=== PATIENT | female | born 1950 | race Caucasian/White ===

== ENCOUNTER → 2018-06-17 13:46 | Outpatient (POV) | payer BC, SELFPAY | PROVIDERS: Visit Provider Dermatology | DX: Z00.00 Encounter for general adult medical examination without abnormal findings (principal) ==

== ENCOUNTER → 2019-04-23 11:53 | Outpatient (CLI) | payer MEDICARE, SELFPAY ==
--- NOTE | 2019-04-23 11:58 | US_ITS ---
PROCEDURE: US THYROID CLINICAL INDICATION: ENLARGED THYROID Difficulty swallowing COMPARISON: No exams were available for comparison FINDINGS: Right lobe: 3.9 x 1.3 x 1.9 cm. There is homogeneous echogenicity. A small cyst is present in the lower pole at 3 mm. Left lobe: 3.3 x 1.3 x 1.3 cm. There is a 3 mm hypoechoic nodule in the upper pole medially at the isthmus junction Additional findings: IMPRESSION: Small bilateral nodules. Otherwise negative thyroid ultrasound Dictated by: Ruslan Pyle MD 04/23/2019 16:43 Electronically signed by Ruslan Pyle MD in [place] 04/23/2019 16:43
== END ==
PROVIDERS: PCP Family Medicine; Visit Provider Nurse Practitioner
DX: E04.9 Nontoxic goiter, unspecified (principal)
CPT/HCPCS: 76536

== ENCOUNTER → 2021-06-24 10:54 | Outpatient (CLI) | payer MEDICARE, SELFPAY ==
--- NOTE | 2021-06-24 10:57 | MR_ITS ---
FINAL REPORT CLINICAL HISTORY: NEW ONSET HEADACHE. Pt states 2 months ago she started having headaches w/ a pressure and pain in the top of her head. states head feels full. nki. dizziness. FINDINGS: Multiplanar MR imaging of the brain was performed without contrast. There are multiple foci of increased T2 signal in the cerebral white matter. The largest focus is in the left posterior periventricular white matter and measures up to 20 mm. There is no evidence of intracranial hemorrhage or mass. The ventricular size is normal. There is no evidence of shift of the midline structures. No abnormal extra-axial fluid collection is identified. The posterior fossa and brainstem have an unremarkable appearance. No area of abnormal restricted diffusion is identified. Normal major vessel vascular flow voids are seen. IMPRESSION: Multiple foci of increased T2 signal could represent moderate chronic ischemic/gliotic change, changes of demyelination, or vasculitis. Reviewed, Interpreted and Dictated by Brad Rodriguez III, MD Transcribed by Tion Bond Authenticated by Brad Rodriguez III, MD on 06/26/2021 07:20:21 AM [facility]
== END ==
PROVIDERS: PCP Family Medicine; Visit Provider Nurse Practitioner Family
DX: R51.9 Headache, unspecified (principal)
CPT/HCPCS: 70551

== ENCOUNTER → 2021-07-14 10:18 | Outpatient (CLI) | payer MEDICARE, SELFPAY ==
[2021-07-14 11:37] LABS: Erythrocyte Sedimentation Rate 15 mm/hr (0-30)
[2021-07-14 11:39] LABS: Thyroid Stimulating Hormone 0.05 uIU/mL (0.465-4.68)
[2021-07-14 12:14] LABS: Vitamin B12 324 pg/mL (239-931)
[2021-07-14 12:37] LABS: Folate > 20.00 ng/mL
[2021-07-22 19:45] LABS: Antinuclear Antibodies (ANA) NEGATIVE
== END ==
PROVIDERS: PCP Family Medicine; Visit Provider Nurse Practitioner Family
DX: R51.9 Headache, unspecified (principal); R90.89 Other abnormal findings on diagnostic imaging of central nervous system; R20.2 Paresthesia of skin
CPT/HCPCS: 36415; 82607; 82746; 84443; 85651; 86038; 86140

== ENCOUNTER → 2021-07-14 11:11 | Outpatient (CLI) | payer MEDICARE, SELFPAY ==
--- NOTE | 2021-07-14 11:12 | MR_ITS ---
FINAL REPORT CLINICAL HISTORY: eval posterior circulation and eval for vasculitis. eval posterior circulation and eval for vasculitis. headache x4-5months. no injury or trauma. dizziness and nausea. COMPARISON: MRI brain dated June 24, 2021 FINDINGS: Multiple projection images of the brain arterial vasculature were obtained without contrast. The raw data images were also reviewed. The distal internal carotid, distal vertebral and basilar arteries have an unremarkable appearance without evidence of significant stenosis or occlusion. The proximal anterior, middle and posterior cerebral arteries have an unremarkable appearance. There is no evidence of significant stenosis or major branch occlusion. No aneurysm or vascular malformation is identified. IMPRESSION: Unremarkable MR angiogram of the head. Reviewed, Interpreted and Dictated by Brad Rodriguez III, MD Transcribed by Trista Arias Authenticated by Brad Rodriguez III, MD on 07/14/2021 01:37:32 PM [facility]
== END ==
PROVIDERS: PCP Family Medicine; Visit Provider Nurse Practitioner Family
DX: R51.9 Headache, unspecified (principal); R90.89 Other abnormal findings on diagnostic imaging of central nervous system; G47.33 Obstructive sleep apnea (adult) (pediatric); G47.19 Other hypersomnia; R06.83 Snoring; E66.9 Obesity, unspecified; Z68.35 Body mass index [BMI] 35.0-35.9, adult
CPT/HCPCS: 36415; 70544; 82607; 82746; 84443; 85651; 86038; 86140; G0399

== ENCOUNTER → 2022-01-31 12:58 | Outpatient (CLI) | payer MEDICARE, SELFPAY ==
--- NOTE | 2022-01-31 13:15 | CT_ITS ---
FINAL REPORT CLINICAL HISTORY: FALL,STAIRS/STEPS hit left side of head FINDINGS: Axial images of the head were obtained without and with contrast. Coronal reformatted images were also obtained. This study was performed with techniques to keep radiation doses as low as reasonably achievable (ALARA). Individualized dose reduction techniques using automated exposure control or adjustment of mA and/or kV according to the patient's size were employed. There is no evidence of intracranial hemorrhage or mass. There is no evidence of acute infarct. There is no evidence of shift of the midline structures. No skull abnormality is seen on the bone window images. No abnormal contrast enhancement is seen. IMPRESSION: No acute intracranial abnormality identified. Reviewed, Interpreted and Dictated by Brad Rodriguez III, MD Transcribed by Tino Bond Authenticated and [facility]
[2022-01-31 13:33] LABS: Blood Urea Nitrogen 22 mg/dl (7-17); Estimated Glomerular Filt Rate 71 ml/min (>60); GFR (African American) 86 ML/MIN (>60)
== END ==
PROVIDERS: PCP Family Medicine; Visit Provider Family Medicine
DX: S09.90XA Unspecified injury of head, initial encounter (principal); W10.9XXA Fall (on) (from) unspecified stairs and steps, initial encounter
CPT/HCPCS: 36415; 70470; 82565; 84520; Q9967

== ENCOUNTER 2023-05-26 15:11 | Observation (INO) | payer MEDICARE, SELFPAY ==
[2023-05-26] VITALS (7 sets, daily range): BP systolic 147–243; BP diastolic 73–100; PULSE 58–68; RESP 14–20; TEMP 36.6–36.7; O2SAT 98–99; BMI 35.4; BMI 35.3
--- NOTE | 2023-05-26 15:29 | ECG_ITS ---
APPROVED REPORT Exam: Resting ECG HR:65 bpm ECG Measurements Heart Rate 65 AXES VA 169 P 69 QRSd 98 QRS -8 QT 409 T 31 QTc 421 Conclusion SINUS RHYTHM WITH OCCASIONAL VENTRICULAR PREMATURE COMPLEXES LOW QRS VOLTAGE IN PRECORDIAL LEADS [QRS DEFLECTION < 1.0 mV IN CHEST LEADS] POSSIBLE ANTERIOR MYOCARDIAL INFARCTION , PROBABLY OLD [30 ms Q WAVE IN V3/V4, OR R < 0.2 mV IN V4] BORDERLINE ECG Electronically signed by : CARMEN EVERETT, 05/26/2023 23:28:18
--- NOTE | 2023-05-26 15:32 | CT_ITS ---
PROCEDURE INFORMATION: Exam: CTA Head With Contrast, Arteriography Exam date and time: 05/26/2023 3:48 PM Age: 72 years old Clinical indication: Stroke-like symptoms; Dizziness/giddiness; Additional info: Intractable dizziness TECHNIQUE: Imaging protocol: Computed tomographic angiography of the head with contrast. Exam focused on the arteries. 3D rendering (Not supervised by radiologist): MIP and/or 3D reconstructed images were created by the technologist. Radiation optimization: All CT scans at this facility use at least one of these dose optimization techniques: automated exposure control; mA and/or kV adjustment per patient size (includes targeted exams where dose is matched to clinical indication); or iterative reconstruction. Contrast material: ISOVUE; Contrast volume: 89 ml; Contrast route: INTRAVENOUS (IV); COMPARISON: MR ANGIO HEAD WO CON 07/14/2021 11:19 AM FINDINGS: ANTERIOR CIRCULATION: Right internal carotid artery: Intracranial segment is patent with no significant stenosis. No aneurysm. Right middle cerebral artery: No occlusion or significant stenosis. No aneurysm. Right anterior cerebral artery: No occlusion or significant stenosis. No aneurysm. Left internal carotid artery: Intracranial segment is patent with no significant stenosis. No aneurysm. Left middle cerebral artery: No occlusion or significant stenosis. No aneurysm. Left anterior cerebral artery: No occlusion or significant stenosis. No aneurysm. POSTERIOR CIRCULATION: Right vertebral artery: No occlusion or significant stenosis. No aneurysm. Left vertebral artery: No occlusion or significant stenosis. No aneurysm. Basilar artery: No occlusion or significant stenosis. No aneurysm. Right posterior cerebral artery: No occlusion or significant stenosis. No aneurysm. Left posterior cerebral artery: No occlusion or significant stenosis. No aneurysm. Brain: Please see the head CT. Cerebral ventricles: No ventriculomegaly. Bones/joints: Unremarkable. No acute fracture. Soft tissues: Unremarkable. Other findings: Images for the CT angiogram head are in the CTA folder as thin section images. IMPRESSION: No large vessel stenosis or occlusion.
--- NOTE | 2023-05-26 15:32 | CT_ITS ---
PROCEDURE INFORMATION: Exam: CT Head Without Contrast Exam date and time: 05/26/2023 3:46 PM Age: 72 years old Clinical indication: Stroke-like symptoms; Dizziness/giddiness; Additional info: Intractable dizziness TECHNIQUE: Imaging protocol: Computed tomography of the head without contrast. Radiation optimization: All CT scans at this facility use at least one of these dose optimization techniques: automated exposure control; mA and/or kV adjustment per patient size (includes targeted exams where dose is matched to clinical indication); or iterative reconstruction. Other technique: STROKE PROTOCOL was implemented. COMPARISON: CT HEAD/BRAIN WO/W CON 01/31/2022 2:11 PM FINDINGS: Brain: Stable mild atrophy and atrophic changes. No intracranial hemorrhage. No midline shift. Cerebral ventricles: No ventriculomegaly. Paranasal sinuses: Visualized sinuses are unremarkable. No fluid levels. Mastoid air cells: Visualized mastoid air cells are well aerated. Bones/joints: Unremarkable. No acute fracture. Soft tissues: Unremarkable. IMPRESSION: Stable chronic changes. ASSESSMENT: ASPECTS (Jade Stroke Program Early CT Score) is 10.
--- NOTE | 2023-05-26 15:32 | CT_ITS ---
PROCEDURE INFORMATION: Exam: CTA Neck With Contrast Exam date and time: 05/26/2023 3:48 PM Age: 72 years old Clinical indication: Dizziness and giddiness; Additional info: Intractable dizziness TECHNIQUE: Imaging protocol: Computed tomographic angiography of the neck with contrast. Exam focused on the cervical segments of the vasculature. 3D rendering (Not supervised by radiologist): MIP and/or 3D reconstructed images were created by the technologist. Radiation optimization: All CT scans at this facility use at least one of these dose optimization techniques: automated exposure control; mA and/or kV adjustment per patient size (includes targeted exams where dose is matched to clinical indication); or iterative reconstruction. Contrast material: ISOVUE; Contrast volume: 89 ml; Contrast route: INTRAVENOUS (IV); COMPARISON: CT ANGIO HEAD 05/26/2023 3:48 PM FINDINGS: Right common carotid artery: No stenosis. No dissection or occlusion. Right internal carotid artery: No stenosis of the extracranial segment. No dissection or occlusion. Right external carotid artery: No occlusion or stenosis of the origin. Left common carotid artery: No stenosis. No dissection or occlusion. Left internal carotid artery: No stenosis of the extracranial segment. No dissection or occlusion. Left external carotid artery: No occlusion or stenosis of the origin. Right vertebral artery: No stenosis. No dissection or occlusion. Left vertebral artery: No stenosis. No dissection or occlusion. Lymph nodes: Numerous small subcentimeter cervical lymph nodes. Soft tissues: Normal. No significant soft tissue swelling. Bones/joints: No acute fracture. Other findings: Bovine aortic arch. IMPRESSION: No stenosis or occlusion. REFERENCES: NASCET CRITERIA. The degree of stenosis in the cervical segment of the internal carotid artery is based on NASCET criteria. Normal is no stenosis. Mild is less than 50% stenosis. Moderate is 50-69% stenosis. Severe is 70% to 99% stenosis. Total occlusion is no detectable patent lumen.
--- NOTE | 2023-05-26 15:32 | XR_ITS ---
PROCEDURE INFORMATION: Exam: XR Chest Exam date and time: 05/26/2023 3:46 PM Age: 72 years old Clinical indication: Other: Dizziness; Additional info: Intractible dizziness TECHNIQUE: Imaging protocol: Radiologic exam of the chest. Views: 1 view. COMPARISON: No relevant prior studies available. FINDINGS: Lungs: Unremarkable. No consolidation. Pleural spaces: Unremarkable. No pleural effusion. No pneumothorax. Heart/Mediastinum: Unremarkable. No cardiomegaly. Bones/joints: Unremarkable. IMPRESSION: No acute findings.
--- NOTE | 2023-05-26 15:34 | ED_ITS ---
Discharge Plan Disposition Patient Disposition: Home, Self-Care Chief Complaint: Dizziness Prescriptions Prescriptions: No Action irbesartan 150 mg tablet 150 mg PO DAILY melatonin 5 mg tablet 5 mg PO HS PRN (Reason: headaches) Qty: 30 0RF Rx Instructions: OTC. Start with 5mg 1-2 hours before bedtime, may titrate up to max dose 15mg Referrals Follow up/Referrals: Kain Mejia MD [Primary Care Provider] - See instructions Clinical Impressions Clinical Impression: Vertigo Discharge ED Provider: Jaden Pederson General Adult HPI General Chief complaint: Dizziness Stated complaint: HBP,dizziness,nausea Time Seen by Provider: 05/26/23 15:23 Mode of Arrival: Ambulatory Source of Information: Patient Limitations: No Limitations Description of Symptoms (Recalled from ER Triage Doc. by RN): Pt reports an episode of dizziness, nausea, and elevated BP. Pt denies HOPSON, chest pain, blurred vision or dizziness currently. Daughter states that the pt has had some unsteady gate yesterday. Pt denies any balance issues at this time. Manual BP of 210/100 at this time. History of Present Illness HPI narrative: Patient is a 72-year-old female with past medical history of hypertension on irbesartan who presents emergency department for evaluation of dizziness. Onset was acute, occurring at 6 PM last night. Patient was sitting down when she felt intractable dizziness and nausea, the room was not spinning in particular direction, no trauma. Her blood pressure at that time was systolic around 170. Due to persistent symptoms since then she presents here for continued evaluation. No headache, no chest pain, no visual symptoms. Denies trauma. He has had difficulty ambulating and feels as if she is swaying from [id number]. Related Data Home Medications Medication Instructions Recorded Confirmed irbesartan 150 mg tablet 150 mg PO DAILY 07/03/21 09/25/21 Previous Rx's Medication Instructions Recorded melatonin 5 mg tablet 5 mg PO HS PRN headaches #30 tabs 07/27/21 Allergies Allergy/AdvReac Type Severity Reaction Status Date / Time Sulfa (Sulfonamide Allergy Intermediate I-HIVES Verified 09/25/21 10:25 Antibiotics) shellfish derived Allergy Mild ITCHING Verified 09/25/21 10:25 [From SHELLFISH (FOOD/DRUG)] epinephrine [From Adrenalin] AdvReac Severe SEIZURES Verified 09/25/21 10:25 From SHELLFISH (FOOD/DRUG) Allergy Mild ITCHING Uncoded 09/25/21 10:25 [facility] Disclaimer: The information contained in this section may have been updated after the patient was seen, as this information can be updated by other users. Social History Smoking Status: Never smoker alcohol intake: never current occupational status: employed Travel in the last 8 weeks: None ROS Obtained: Yes Systems reviewed as appropriate & no additional complaints except as documented Physical Exam General General appearance: alert and in no apparent distress Head Head exam: atraumatic and normocephalic Eye Eye exam: Present PERRL and EOMI ENT ENT exam: Present mucous membranes moist Neck Neck exam: Present normal inspection Chest Chest inspection: Present normal inspection and symmetric chest wall rise Respiratory Respiratory exam: Present normal lung sounds bilaterally; Absent respiratory distress Cardiovascular Cardiovascular exam: Present regular rate and normal rhythm Abdominal Exam Abdominal exam: Present soft; Absent tenderness Extremities Exam Extremities exam: Present normal inspection Neurological Exam Neurological exam: Present alert, CN II-XII intact and other ([id number], [id number] normal); Absent motor sensory deficit Psychiatric Psychiatric exam: Present normal affect Skin Skin exam: Present warm and dry Medical Decision Making Venkata Inquiry Pt receiving controlled substance: No Vital Signs: 05/26/23 15:13 05/26/23 15:57 05/26/23 16:31 Temperature 97.9 F Temperature Source Oral Pulse Rate 64 59 L Pulse Rate [Right Radial] 65 Respiratory Rate 14 20 Blood Pressure 228/74 H 190/73 H Blood Pressure [Left Arm] 210/100 H Blood Pressure Mean 125 Blood Pressure Mean [Left Arm] 136 Blood Pressure Source [Left Arm] Manual Cuff/ Auscultation Blood Pressure Position [Left Arm] Sitting 02 Sat by Pulse Oximetry 98 98 98 Oxygen Delivery Method Room Air Lab Data Lab Results 05/26/23 15:42: WBC 5.2, RBC 4.89, Hgb 14.7, Hct 46.4, MCV 94.8, MCH 30.0, MCHC 31.6 L, RDW 13.4, Plt Count 222, MPV 8.7, Neut % (Auto) 58.8, Lymph % (Auto) 33.1, [place] % (Auto) 6.1, Eos % (Auto) 0.8, Baso % (Auto) 1.2, Neut # (Auto) 3.1, Lymph # (Auto) 1.7, [place] # (Auto) 0.3, Eos # (Auto) 0.0, Baso # (Auto) 0.1, Sodium 142, Potassium 4.2, Chloride 108 H, Carbon Dioxide 30, Anion Gap 8.2, BUN 18 H, Creatinine 0.70, Estimated Creat Clear 74, Estimated GFR 82, Est GFR ( Amer) 100, Glucose 117 H, Calcium 9.2, Magnesium 2.0, Total Bilirubin 0.5, AST 32, ALT 26, Alkaline Phosphatase 67, Total Protein 6.7, Albumin 4.0, Globulin 2.7, Albumin/Globulin Ratio 1.5 05/26/23 15:42 05/26/23 15:42 Orders (Tests/Meds): ED MEDICATIONS Generic Name Dose Route Start Last Admin Trade Name Freq PRN Reason Stop Dose Admin Sodium Chloride 10 ml 05/26/23 15:47 05/26/23 15:50 Sodium Chloride 0.9% 10ml Syr (Rad Only) IV 06/25/23 15:46 10 ml NEEDED PRN Administration Maintain IV Site Discontinued Medications Generic Name Dose Route Start Last Admin Trade Name Freq PRN Reason Stop Dose Admin Iopamidol 89 ml 05/26/23 15:47 05/26/23 15:49 Iopamidol-370 (76%);100ml Bottle IV 05/26/23 15:48 89 ml ONCE ONE Administration Sodium Chloride 40 ml 05/26/23 15:47 05/26/23 15:49 0.9 % Sodium Chloride 50 Ml Vial IV 05/26/23 15:48 40 ml ONCE ONE Administration ORDERS Category Date Time Status CT angio head Stat Cat Scan 05/26/23 15:[address] angio neck Stat Cat Scan 05/26/23 15:[address] head/brain wo con Stat Cat Scan 05/26/23 15:32 Completed CXR --portable [XR chest portable] Stat Exams 05/26/23 15:32 Completed CBC w/Auto Diff [Complete Blood Count Auto Diff] Stat Lab 05/26/23 15:42 Completed CMP [Comprehensive Metabolic Panel] Stat Lab 05/26/23 15:42 Completed MG [Magnesium] Stat Lab 05/26/23 15:42 Completed ECG Data Tracing #1: Independently interpreted by me, rate 65, rhythm is regular, no ST elevation in anatomical contiguous leads, QTc 421, isolated PVC. Medical Decision Narrative: In summary patient is a 72-year-old female past medical history described above presents emergency department for evaluation of intractable dizziness. Patient is hemodynamically stable nontoxic-appearing upon arrival, afebrile. Differential diagnosis includes posterior circulation CVA, hypertensive emergency, among others. It is not particularly positional therefore my concern for peripheral vertigo given no nystagmus on exam is low. Workup will be conducted with hematologic labs, EKG, noncontrasted CT scan of the head, CT of the head and neck. Initial workup reviewed by me, hematologic labs are nonactionable. Noncontrasted CT scan of the head shows stable findings, CTA head and neck I had discussion with virtual radiology, no acute findings. Upon repeat evaluation patient had persistent symptoms. Systolic has spontaneously gone from 2 28-1 90 without intervention. Given concern for posterior circulation stroke I am allowing permissive hypertension until MRI is conducted. Given the fact the patient would benefit from admission for further stroke workup and secondary stroke prophylaxis as well as blood pressure modification the case was discussed with hospital medicine regarding management and they will be admitted to their service for continued evaluation at this time. Critical Care Critical Care Time Critical Care Time: No
[2023-05-26] MEDS: 0.9 % SODIUM CHLORIDE 50 ML VIAL 40 ML IV (15:49)
[2023-05-26] MEDS: IOPAMIDOL-370 (76%);100ML BOTTLE 89 ML IV (15:49)
[2023-05-26] MEDS: SODIUM CHLORIDE 0.9% 10ML SYR (RAD ONLY) 10 ML IV (15:50)
[2023-05-26 16:04] LABS: Basophils # 0.1 K/mm3 (0-0.2); Basophils % 1.2 % (0.1-2.0); Eosinophils % 0.8 % (0.1-12.0); Hematocrit 46.4 % (37.0-47.0); Hemoglobin 14.7 g/dL (12.2-16.2); Lymphocytes # 1.7 K/mm3 (0.7-4.5); Lymphocytes % 33.1 % (10-50); Mean Corpuscular HGB Conc 31.6 g/dL (31.8-35.4); Mean Corpuscular Volume 94.8 fl (81-99); Mean Platelet Volume 8.7 fl (7.4-10.4); Monocytes # 0.3 K/mm3 (0.1-1.0); Monocytes % 6.1 % (1.7-9.3); Neutrophils # 3.1 K/mm3 (1.8-7.8); Neutrophils % 58.8 % (37.0-80.0); Platelet Count 222 K/mm3 (142-424); Red Blood Count 4.89 M/mm3 (4.20-5.40); Red Cell Distribution Width 13.4 % (11.5-17.5); White Blood Count 5.2 K/mm3 (4.8-10.8)
[2023-05-26 16:06] LABS: Chloride 108 mmol/L (98-107); Potassium 4.2 mmoL/L (3.5-5.1); Sodium 142 mmol/L (136-145)
[2023-05-26 16:09] LABS: Alanine Aminotransferase 26 U/L (12-78); Albumin/Globulin Ratio 1.5 (1.1-1.8); Alkaline Phosphatase 67 U/L (38-126); Anion Gap 8.2 mEq/L (5-15); Aspartate Amino Transferase 32 U/L (14-36); Bilirubin,Total 0.5 mg/dl (0.2-1.3); Blood Urea Nitrogen 18 mg/dl (7-17); Calcium 9.2 mg/dl (8.4-10.2); Carbon Dioxide 30 mmol/L (22.0-30.0); Creatinine Clearance Estimated 74 mL/min (50-200); Estimated Glomerular Filt Rate 82 ml/min (>60); GFR (African American) 100 ML/MIN (>60); Globulin 2.7 g/dL (1.3-3.2); Glucose 117 mg/dl (74-100); Total Protein,Serum 6.7 g/dl (6.3-8.2)
--- NOTE | 2023-05-26 16:34 | PC.NURSE ---
o/p with hospitalist at this time.
--- NOTE | 2023-05-26 16:35 | PC.NURSE ---
patient admitted to 2nd floor to hospitalist at this time.
--- NOTE | 2023-05-26 16:37 | PC.NURSE ---
Dr Pederson at bedside
--- NOTE | 2023-05-26 16:37 | PC.NURSE ---
Admissions notified of admit to room 207 for Stroke like symptoms to . OBS.
--- NOTE | 2023-05-26 16:47 | PC.NURSE ---
Report called to Tiffany NOLAN
--- NOTE | 2023-05-26 17:04 | EXP.HP ---
History of Present Illness *Admission Date: 05/26/23 *Reason for visit:: dizziness *History of present illness: Patient is a 72-year-old female with past medical history of hypertension who presents to the hospital due to complaints of dizziness and difficulty maintaining balance. According to the patient she started feeling dizzy around 1 day, it has not been improving. She denies associated numbness tingling sensation weakness in arms legs, denies associated blurry vision. Patient denies similar symptoms in the past, denies history of alcohol use. Patient denied chest pain shortness of breath nausea vomiting diarrhea constipation dysuria fevers and chills. Patient had CT a, CT head performed in the ED-negative for acute neurologic process, patient was admitted for CVA rule out. [facility] Disclaimer: The information contained in this section may have been updated after the patient was seen, as this information can be updated by other users. Social History Smoking Status: Never smoker alcohol intake: never current occupational status: employed Travel in the last 8 weeks: None Review of Systems Review of Systems Review of systems (narrative): as per [facility] Meds Home Medications and Allergies Home Medications Medication Instructions Recorded Confirmed Type irbesartan 150 mg tablet 150 mg PO DAILY 07/03/21 09/25/21 History melatonin 5 mg tablet 5 mg PO HS PRN headaches #30 tabs 07/27/21 09/25/21 Rx New Prescriptions to Start Prescriptions: Allergies Allergy/AdvReac Type Severity Reaction Status Date / Time Sulfa (Sulfonamide Allergy Intermediate I-HIVES Verified 09/25/21 10:25 Antibiotics) shellfish derived Allergy Mild ITCHING Verified 09/25/21 10:25 [From SHELLFISH (FOOD/DRUG)] epinephrine [From Adrenalin] AdvReac Severe SEIZURES Verified 09/25/21 10:25 From SHELLFISH (FOOD/DRUG) Allergy Mild ITCHING Uncoded 09/25/21 10:25 Exam Data for Last 24 hours Vital signs and Labs for Last 24 Hours: Temp Pulse Resp BP Pulse Ox O2 Del Method 97.9 F 59 L 20 190/73 H 98 Room Air 05/26/23 15:13 05/26/23 16:05/26/23 15:57 05/26/23 16:31 05/26/23 16:31 05/26/23 15:13 Laboratory Results - last 24 hr 05/26/23 15:42: WBC 5.2, RBC 4.89, Hgb 14.7, Hct 46.4, MCV 94.8, MCH 30.0, MCHC 31.6 L, RDW 13.4, Plt Count 222, MPV 8.7, Neut % (Auto) 58.8, Lymph % (Auto) 33.1, [place] % (Auto) 6.1, Eos % (Auto) 0.8, Baso % (Auto) 1.2, Neut # (Auto) 3.1, Lymph # (Auto) 1.7, [place] # (Auto) 0.3, Eos # (Auto) 0.0, Baso # (Auto) 0.1, Sodium 142, Potassium 4.2, Chloride 108 H, Carbon Dioxide 30, Anion Gap 8.2, BUN 18 H, Creatinine 0.70, Estimated Creat Clear 74, Estimated GFR 82, Est GFR ( Amer) 100, Glucose 117 H, Calcium 9.2, Magnesium 2.0, Total Bilirubin 0.5, AST 32, ALT 26, Alkaline Phosphatase 67, Total Protein 6.7, Albumin 4.0, Globulin 2.7, Albumin/Globulin Ratio 1.5 I & O for Last 24 hours: Intake & Output 05/23/23 05/24/23 05/25/23 05/26/23 23:59 23:59 23:59 23:59 Weight 90.718 kg Constitutional Constitutional: no acute distress *Routine HEENT Exam Head: Present normocephalic Eye: Present EOMI and PERRL ENT: Present mucous membranes moist *Routine Neck Exam Neck: Present supple; Absent lymphadenopathy *Routine Respiratory Exam Respiratory: Present CTA bilaterally *Routine Cardiovascular Exam Cardiovascular: Present RRR *Routine Abdominal Exam Abdominal: Present soft and normoactive bowel sounds; Absent tenderness *Routine Rectal Exam Rectal:: deferred *Routine Genitalia Exam Genitalia:: deferred *Routine Extremities Exam Extremities: Absent cyanosis, clubbing or edema *Routine Skin Exam Skin: Present warm; Absent rash *Routine Neurological Exam Neurological: Present alert and oriented X3 Assessment and Plan *Assessment and plan (1) Vertigo: Status: Acute Category: Medical Code(s): R42 - Dizziness and giddiness (2) HTN (hypertension): Status: Acute Category: Medical Code(s): I10 - Essential (primary) hypertension Plan Patient is a 72-year-old female with past medical history of hypertension who presents to the hospital due to complaints of dizziness and difficulty maintaining balance. According to the patient she started feeling dizzy around 1 day, it has not been improving. She denies associated numbness tingling sensation weakness in arms legs, denies associated blurry vision. Patient denies similar symptoms in the past, denies history of alcohol use. Patient denied chest pain shortness of breath nausea vomiting diarrhea constipation dysuria fevers and chills. Patient had CT a, CT head performed in the ED-negative for acute neurologic process, patient was admitted for CVA rule out. Assessment and plan Dizziness, rule out CVA Order MRI brain without contrast Aspirin, statin CT head, CTA head and neck reviewed-negative for acute neurologic process Consult PT/OT, speech therapy Check orthostatic vitals Meclizine as needed dizziness Monitor and replace electrolytes Uncontrolled hypertension Resume home irbesartan As needed hydralazine with parameters DVT prophylaxis-Lovenox
--- NOTE | 2023-05-26 17:36 | PC.NURSE ---
Tucker notified about PT/OT/ST evaluations on patient at this time
[2023-05-26] MEDS: 0.9 % SODIUM CHLORIDE 1000ML 1,000 ML 50 ML IV (17:37)
--- NOTE | 2023-05-26 17:37 | PC.NURSE ---
Tucker responded they will see patient in the morning.
[2023-05-26] MEDS: ENOXAPARIN 40MG/0.4ML SYRINGE 40 MG SQ (17:38)
[2023-05-26] MEDS: HYDRALAZINE 20MG/ML VIAL 10 MG IV (20:24)
[2023-05-26] MEDS: ATORVASTATIN 40MG TABLET 40 MG PO (20:40)
--- NOTE | 2023-05-26 22:40 | PC.NURSE ---
Called to room by patient, pt states shes feeling anxious due to the IV pump and feeling strapped in to bed, she is asking to D/C fluids, spoke with Kalia MEJIA to update him.
[2023-05-26 23:24] LABS: Microscopic, Urine URINE MICROSCOPIC (MICROSCOPIC)
[2023-05-26 23:34] LABS: Appearance,Urine CLEAR (Clear); Bilirubin,Urine Negative (Negative); Blood, Urine Negative (Negative); Color,Urine YELLOW (Yellow); Glucose,Urine (UA) Negative (Negative); Ketones,Urine Negative (Negative); Leukocyte Esterase,Urine Negative (Negative); Nitrate,Urine Negative (Negative); Protein,Urine Negative (Negative)
[2023-05-27] VITALS: BP 124/61; PULSE 79; RESP 16; TEMP 37; O2SAT 96
[2023-05-27 04:00] VITALS: BP 151/68; PULSE 81; RESP 16; TEMP 37; O2SAT 98; BMI 35.6
--- NOTE | 2023-05-27 05:33 | PC.NURSE ---
Pt is alert and oriented. Pt has had no complaints this shift. IV fluids D/C due to patient request, MANAGER TEST aware of pt refusal. Pt ambulated to the restroom. Daughter remained at the bedside. No stroke symptoms noted. Call light in reach.
[2023-05-27 06:40] LABS: Basophils # 0.1 K/mm3 (0-0.2); Basophils % 0.9 % (0.1-2.0); Chloride 111 mmol/L (98-107); Eosinophils # 0.1 K/mm3 (0.0-0.4); Eosinophils % 0.9 % (0.1-12.0); Hematocrit 45.1 % (37.0-47.0); Hemoglobin 14.3 g/dL (12.2-16.2); Lymphocytes % 34.4 % (10-50); Mean Corpuscular HGB Conc 31.7 g/dL (31.8-35.4); Mean Corpuscular Hemoglobin 29.1 pg (27.0-31.2); Mean Corpuscular Volume 91.8 fl (81-99); Mean Platelet Volume 8.5 fl (7.4-10.4); Monocytes # 0.4 K/mm3 (0.1-1.0); Monocytes % 6.8 % (1.7-9.3); Neutrophils # 3.3 K/mm3 (1.8-7.8); Platelet Count 209 K/mm3 (142-424); Potassium 4.2 mmoL/L (3.5-5.1); Red Blood Count 4.91 M/mm3 (4.20-5.40); Red Cell Distribution Width 13.4 % (11.5-17.5); Sodium 139 mmol/L (136-145); White Blood Count 5.9 K/mm3 (4.8-10.8)
[2023-05-27 06:43] LABS: Anion Gap 7.2 mEq/L (5-15); Blood Urea Nitrogen 19 mg/dl (7-17); Calcium 8.9 mg/dl (8.4-10.2); Carbon Dioxide 25 mmol/L (22.0-30.0); Creatinine Clearance Estimated 74 mL/min (50-200); Estimated Glomerular Filt Rate 99 ml/min (>60); GFR (African American) 119 ML/MIN (>60); Glucose 110 mg/dl (74-100)
--- NOTE | 2023-05-27 07:15 | HMH.PTEV ---
Physical Therapy Evaluation Rehab PT IP Evaluation Start: 05/26/23 17:03 Freq: ONCE Status: Active Protocol: Document 05/27/23 07:04 ANAHI (Rec: 05/27/23 07:15 ANAHI [id number]) Subjective/History History History Per H&P: Patient is a 72-year-old female with past medical history of hypertension who presents to the hospital due to complaints of dizziness and difficulty maintaining balance. According to the patient she started feeling dizzy around 1 day, it has not been improving. She denies associated numbness tingling sensation weakness in arms legs, denies associated blurry vision. Patient denies similar symptoms in the past, denies history of alcohol use. Patient denied chest pain shortness of breath nausea vomiting diarrhea constipation dysuria fevers and chills. Patient had CT a, CT head performed in the ED-negative for acute neurologic process, patient was admitted for CVA rule out. Subjective Subjective PLOF per pt report: IND with ADLs and Functional mobility. Lives with in a 2- story home with 4 GEORGE. No AD use. No falls in the past 30 days. I'm not as dizzy as I was yesterday. New diagnosis of cancer in past 12 No months? Rehab PT IP Eval Objective Appearance Patient Behavior Appropriate,Cooperative Patient Orientation Person,Birthday,Situation Difficulty following instructions none Speech Pattern Clear Ambulation Patient Able to Ambulate Yes Ambulation Observation IP General Gait Pattern Observation No Deviations/Normal Ambulation Distance (feet) 25 Ambulation Assistive Device None Ambulation Ability Supervision/Stand by Balance Ability to Arise Able, uses arms to help Sitting Balance Steady, safe Standing Balance Steady, wide stance Transfers Bed Transfer Ability Supervision/Stand by Sit to Stand Bed Transfer Ability Supervision/Stand by Rehab PT IP prob,goals,plan Problems Date of Evaluation: 05/27/23 Rehab Potential Rehab Potential Innapropriate for Skilled Therapy Discharge Plan PT Discharge Plan Pt ambulated SUP-IND without AD. Pt safe to d/c home when deemed medically necessary d/t current level of mobility, home set-up, and family support. Pt not appropriate for skilled acute care PT at this time d/t pt?s mobility being at baseline. Eval Complexity Eval Charge Codes 64315 - Moderate Complexity PHYSICIAN CERTIFICATION: I certify the specified therapy services for Yanawendy Bhagattox are required, authorized, and reviewed every 30 days.
--- NOTE | 2023-05-27 07:39 | HMH.PHAINT1 ---
Pharmacy Intervention Comments: HOME MEDICATION LIST VERIFIED VIA OUTSIDE PHARMACY
[2023-05-27 07:52] VITALS: BP 138/63; PULSE 75; RESP 18; TEMP 36.5; O2SAT 98
--- NOTE | 2023-05-27 08:24 | MR_ITS ---
FINAL REPORT CLINICAL HISTORY: CVA. HYPERTENSION, DIZZINESS COMPARISON: 06/24/2021 FINDINGS: Multiplanar MR imaging of the brain was performed without contrast. There is mild age-appropriate atrophy. There are scattered foci of increased T2 signal in the cerebral white matter that have a nonspecific appearance but likely represent moderate chronic ischemic/gliotic changes. There is no evidence of intracranial hemorrhage or mass. No abnormal ventricular dilatation is identified. No abnormal extra-axial fluid collection is seen. No abnormality is seen on the diffusion weighted images. The posterior fossa and brainstem are unremarkable. Normal major vessel vascular flow voids are seen. IMPRESSION: Stable, age-appropriate atrophy and moderate chronic ischemic/gliotic changes. No acute intracranial abnormality. Reviewed, Interpreted and Dictated by Brad Rodriguez III, MD Transcribed by Lee Ann Hull Authenticated and [facility]
[2023-05-27] MEDS: IRBESARTAN 150MG TAB 150 MG PO (08:48)
[2023-05-27] MEDS: ENOXAPARIN 40MG/0.4ML SYRINGE 40 MG SQ (08:48)
[2023-05-27] MEDS: ASPIRIN 81MG CHEWABLE TABLET 81 MG PO (08:48)
--- NOTE | 2023-05-27 10:13 | HMH.OTEV ---
OT Inpatient Evaluation Rehab OT IP Evaluation Start: 05/26/23 17:03 Freq: ONCE Status: Active Protocol: Document 05/27/23 10:10 VALERY (Rec: 05/27/23 10:12 VALERY [id number]) Rehab OT IP Assessment Subjective History Patient is a 72-year-old female with past medical history of hypertension who presents to the hospital due to complaints of dizziness and difficulty maintaining balance. According to the patient she started feeling dizzy around 1 day, it has not been improving. She denies associated numbness tingling sensation weakness in arms legs, denies associated blurry vision. Patient denies similar symptoms in the past, denies history of alcohol use. Patient denied chest pain shortness of breath nausea vomiting diarrhea constipation dysuria fevers and chills. Patient had CT a, CT head performed in the ED-negative for acute neurologic process, patient was admitted for CVA rule out. Patient lives with . Independent with ADLs and fx'l mobility prior to hospitalization. Subjective I can get up. Analysis Patient's fx'l mobility, bed mobility, transfers, ambulation and ADLs during initial evaluation. Independent with ADLs and fx'l mobility. Objective Patient Orientation Person,Name,Age,Birthday,Year Right Upper Extremity Gross ROM WFL Left Upper Extremity Gross ROM WFL Bed Mobility bed mobility - supine/sit Assist Level Independent Transfer Training Sit/Stand Transfer Assist Level Independent Chair Transfer Ability Independent Chair Transfer Technique Sit to/from Ambulatory Rehab OT IP prob,goals,plan Problems Date of Evaluation: 05/27/23 Rehab Potential Rehab Potential Innapropriate for Skilled Therapy Discharge Plan OT Discharge Plan Recommend patient to return home after medical d/c. Patient appears to be at baseline. Eval Complexity Eval Charge Codes 93973 - Low Complexity PHYSICIAN CERTIFICATION: I certify the specified therapy services for Yana Francis are required, authorized, and reviewed every 30 days.
[2023-05-27 10:19] VITALS: BP 156/65
[2023-05-27 10:20] VITALS: BP 140/77; BP 141/71
--- NOTE | 2023-05-27 11:22 | PC.NURSE ---
pt left floor for MRI @[id number]
[2023-05-27 12:00] VITALS: BP 160/90; PULSE 72; RESP 19; O2SAT 98
--- NOTE | 2023-05-27 12:01 | P.DS_ITS ---
General Admission date:: 05/26/23 Discharge date: 05/27/23 HPI HPI HPI: Patient is a 72-year-old female with past medical history of hypertension who presents to the hospital due to complaints of dizziness and difficulty maintaining balance. According to the patient she started feeling dizzy around 1 day, it has not been improving. She denies associated numbness tingling sensation weakness in arms legs, denies associated blurry vision. Patient denies similar symptoms in the past, denies history of alcohol use. Patient denied chest pain shortness of breath nausea vomiting diarrhea constipation dysuria fevers and chills. Patient had CT a, CT head performed in the ED- negative for acute neurologic process, patient was admitted for CVA rule out. Hospital Course Hospital Course Hospital Course: Patient is a 72-year-old female with past medical history of hypertension who presents to the hospital due to complaints of dizziness and difficulty maintaining balance. According to the patient she started feeling dizzy around 1 day, it has not been improving. She denies associated numbness tingling sen sation weakness in arms legs, denies associated blurry vision. Patient denies similar symptoms in the past, denies history of alcohol use. Patient denied chest pain shortness of breath nausea vomiting diarrhea constipation dysuria fevers and chills. Patient had CT a, CT head performed in the ED-negative for acute neurologic process, patient was admitted for CVA rule out. Assessment and plan Dizziness, ruled out CVA Order MRI brain without contrast Uncontrolled hypertension Resume home irbesartan As needed hydralazine with parameters DVT prophylaxis-Lovenox Dizziness has improved per patient, balance is normal and counseled on f/u with PCP for BP regimen for control, BP stable at TX Patient recommended to f/u with her neurologist at [facility] in [place] Exam Data for Last 24 hours Vital signs and Labs for Last 24 Hours: Temp Pulse Resp BP Pulse Ox O2 Del Method 97.7 F 75 18 140/77 98 Room Air 05/27/23 07:52 05/27/23 07:52 05/27/23 07:52 05/27/23 10:20 05/27/23 07:52 05/27/23 11:00 Laboratory Results - last 24 hr 05/26/23 15:42: WBC 5.2, RBC 4.89, Hgb 14.7, Hct 46.4, MCV 94.8, MCH 30.0, MCHC 31.6 L, RDW 13.4, Plt Count 222, MPV 8.7, Neut % (Auto) 58.8, Lymph % (Auto) 33.1, [place] % (Auto) 6.1, Eos % (Auto) 0.8, Baso % (Auto) 1.2, Neut # (Auto) 3.1, Lymph # (Auto) 1.7, [place] # (Auto) 0.3, Eos # (Auto) 0.0, Baso # (Auto) 0.1, Sodium 142, Potassium 4.2, Chloride 108 H, Carbon Dioxide 30, Anion Gap 8.2, BUN 18 H, Creatinine 0.70, Estimated Creat Clear 74, Estimated GFR 82, Est GFR ( Amer) 100, Glucose 117 H, Calcium 9.2, Magnesium 2.0, Total Bilirubin 0.5, AST 32, ALT 26, Alkaline Phosphatase 67, Total Protein 6.7, Albumin 4.0, Globulin 2.7, Albumin/Globulin Ratio 1.5 05/26/23 22:50: Urine Color Yellow, Urine Appearance Clear, Urine pH 6.0, Ur Specific [place] 1.020, Urine Protein Negative, Urine Glucose (UA) Negative, Urine Ketones Negative, Urine Blood Negative, Urine Nitrate Negative, Urine Bilirubin Negative, Urine Urobilinogen 1.0, Ur Leukocyte Esterase Negative, Urine RBC None, Urine WBC None, Ur Squamous Epith Cells None, Urine Bacteria None 05/27/23 06:08: WBC 5.9, RBC 4.91, Hgb 14.3, Hct 45.1, MCV 91.8, MCH 29.1, MCHC 31.7 L, RDW 13.4, Plt Count 209, MPV 8.5, Neut % (Auto) 57.0, Lymph % (Auto) 34.4, [place] % (Auto) 6.8, Eos % (Auto) 0.9, Baso % (Auto) 0.9, Neut # (Auto) 3.3, Lymph # (Auto) 2.0, [place] # (Auto) 0.4, Eos # (Auto) 0.1, Baso # (Auto) 0.1, Sodium 139, Potassium 4.2, Chloride 111 H, Carbon Dioxide 25, Anion Gap 7.2, BUN 19 H, Creatinine 0.60, Estimated Creat Clear 74, Estimated GFR 99, Est GFR ( Amer) 119, Glucose 110 H, Calcium 8.9 I & O for Last 24 hours: Intake & Output 05/24/23 05/25/23 05/26/23 05/27/23 23:59 23:59 23:59 23:59 Intake Total 120 / 120 Output Total 400 / 400 0 / 0 Balance -400 / -400 120 / 120 Weight 90.463 kg 91.399 kg Constitutional Constitutional: no acute distress *Routine HEENT Exam Head: Present normocephalic Eye: Present EOMI and PERRL ENT: Present mucous membranes moist *Routine Neck Exam Neck: Present supple; Absent lymphadenopathy *Routine Respiratory Exam Respiratory: Present CTA bilaterally *Routine Cardiovascular Exam Cardiovascular: Present RRR *Routine Abdominal Exam Abdominal: Present soft and normoactive bowel sounds; Absent tenderness *Routine Extremities Exam Extremities: Absent cyanosis, clubbing or edema *Routine Skin Exam Skin: Present warm; Absent rash *Routine Neurological Exam Neurological: Present alert and oriented X3 Results Data Completed and Pending Labs on day of discharge: Labs from last 24 hours 05/27/23 05/26/23 05/26/23 06:08 22:50 15:42 WBC 5.9 5.2 RBC 4.91 4.89 Hgb 14.3 14.7 Hct 45.1 46.4 MCV 91.8 94.8 MCH 29.1 30.0 MCHC 31.7 L 31.6 L RDW 13.4 13.4 Plt Count 209 222 MPV 8.5 8.7 Neut % (Auto) 57.0 58.8 Lymph % (Auto) 34.4 33.1 [place] % (Auto) 6.8 6.1 Eos % (Auto) 0.9 0.8 Baso % (Auto) 0.9 1.2 Neut # (Auto) 3.3 3.1 Lymph # (Auto) 2.0 1.7 [place] # (Auto) 0.4 0.3 Eos # (Auto) 0.1 0.0 Baso # (Auto) 0.1 0.1 Sodium 139 142 Potassium 4.2 4.2 Chloride 111 H 108 H Carbon Dioxide 25 30 Anion Gap 7.2 8.2 BUN 19 H 18 H Creatinine 0.60 0.70 Estimated Creat Clear 74 74 Estimated GFR 99 82 Est GFR ( Amer) 119 100 Glucose 110 H 117 H Calcium 8.9 9.2 Magnesium 2.0 Total Bilirubin 0.5 AST 32 ALT 26 Alkaline Phosphatase 67 Total Protein 6.7 Albumin 4.0 Globulin 2.7 Albumin/Globulin Ratio 1.5 Urine Color Yellow Urine Appearance Clear Urine pH 6.0 Ur Specific [place] 1.020 Urine Protein Negative Urine Glucose (UA) Negative Urine Ketones Negative Urine Blood Negative Urine Nitrate Negative Urine Bilirubin Negative Urine Urobilinogen 1.0 Ur Leukocyte Esterase Negative Urine RBC None Urine WBC None Ur Squamous Epith Cells None Urine Bacteria None DS: Diagnosis Discharge Diagnosis (1) Vertigo: Status: Acute Code(s): R42 - Dizziness and giddiness (2) HTN (hypertension): Status: Acute Code(s): I10 - Essential (primary) hypertension Meds Home Medications and Allergies Home Medications Medication Instructions Recorded Confirmed Type irbesartan 150 mg tablet 150 mg PO DAILY Hypertension 07/03/21 05/26/23 History meloxicam 15 mg tablet 15 mg PO NEEDED PRN Arthritis 05/26/23 05/27/23 History rifaximin 550 mg tablet (Xifaxan) 550 mg PO TID IBS 05/26/23 05/26/23 History meclizine 12.5 mg tablet 12.5 mg PO TIDP PRN Dizziness 3 05/27/23 Rx days #9 tabs New Prescriptions to Start Prescriptions: mecliziShashank Lobato Allergies Allergy/AdvReac Type Severity Reaction Status Date / Time Sulfa (Sulfonamide Allergy Intermediate I-HIVES Verified 09/25/21 10:25 Antibiotics) shellfish derived Allergy Mild ITCHING Verified 09/25/21 10:25 [From SHELLFISH (FOOD/DRUG)] epinephrine [From Adrenalin] AdvReac Severe SEIZURES Verified 09/25/21 10:25 From SHELLFISH (FOOD/DRUG) Allergy Mild ITCHING Uncoded 09/25/21 10:25 Discharge Plan Disposition Patient Disposition: Home, Self-Care Condition: Good Follow up Plan Follow up with: Mitchel Irene [Referring] - Enter time for follow up (check periodically for cancelations to possibly have August apt moved sooner.) Prescriptions/Medication Reconciliation: New meclizine 12.5 mg Tablet 12.5 mg PO TIDP PRN (Reason: Dizziness) 3 Days Qty: 9 0RF Continued irbesartan 150 mg tablet 150 mg PO DAILY meloxicam 15 mg tablet 15 mg PO NEEDED PRN (Reason: Arthritis) Patient Comments: TAKE 1 TABLET BY MOUTH ONCE DAILY NEEDED Xifaxan 550 mg tablet 550 mg PO TID Problem Reconciliation Problems Reviewed?: Yes Patient Discharge Instructions ACTIVITY: Ambulate as tolerated Patient Instructions: Essential Hypertension, DI for Transient Ischemic Attack Providers Primary Care Provider: Kain Mejia Admit Provider: Shashank Granados Attending Provider: Shashank Granados
--- NOTE | 2023-05-27 12:15 | PC.NURSE ---
pt returned to [facility] @ 1212 from MRI
--- NOTE | 2023-05-27 14:12 | HMH.PHAINT1 ---
Pharmacy Intervention Comments: DISCHARGE MEDICATION COUNSELING WAS PROVIDED TO PATIENT ON MECLIZINE ON INDICATION AND POSSIBLE SIDE EFFECTS. PATIENT VERBALIZED UNDERSTANDING AND HAD NO FURTHER QUESTIONS.
--- NOTE | 2023-05-28 11:42 | SW/DCPLANNER ---
Follow up phone call w/ this patient: patient stated that she followed up w/ Dr Mejia this AM. Patient is doing well at this time. Patient was able to potato picker her discharge medication. Patient was very happy w/ her stay and staff at [facility]. Patient did not have any further needs/questions at this time.
== END 2023-05-27 14:52 | disposition home or self-care (01) ==
LOC: ER 16:36 → 2ND 17:28
PROVIDERS: Admitting Provider Internal Medicine; Emergency Provider Emergency Medicine; PCP Family Medicine; Visit Provider Internal Medicine
DX: R42 Dizziness and giddiness (principal); I10 Essential (primary) hypertension
CPT/HCPCS: 36415; 70450; 70496; 70498; 70551; 71045; 80048; 80053; 81001; 83735; 85025; 93005; 97162; 97165; 99285; G0378; Q9967

== ENCOUNTER 2023-06-07 13:16 | Outpatient (CLI) | payer MEDICARE, SELFPAY ==
--- NOTE | 2023-06-07 | CA_ITS ---
FINAL REPORT TECHNIQUE: Color Doppler, duplex Doppler and tracy scale sonography of the bilateral neck arterial vasculature was performed. Velocities were measured in the carotid arteries. Stenosis evaluation based on the validated velocity criteria. CLINICAL HISTORY: Dizziness, ? TIA FINDINGS: The peak systolic velocity of the right common carotid artery is 94 cm/s. The peak systolic velocity of the right internal carotid artery is 93 cm/s and end diastolic velocity 28 cm/s. The ICA/CCA ratio is 0.94. A small amount of plaque is present. The right external carotid artery is patent. The right vertebral artery is patent with antegrade flow. The peak systolic velocity of the left common carotid artery is 94 cm/s. The peak systolic velocity of the left internal carotid artery is 96 cm/s and end diastolic velocity 28 cm/s. The ICA/CCA ratio is 1.1. A small amount of plaque is present. The left external carotid artery is patent.The left vertebral artery is patent with antegrade flow. IMPRESSION: Less than 50% bilateral carotid stenoses. Bilateral patent vertebral arteries with antegrade flow. If indicated, CTA or MRA could further evaluate. Reviewed, Interpreted and Dictated by Brad Rodriguez III, MD Transcribed by Nakita Avila Authenticated and [facility]
== END 2023-06-07 23:59 | disposition home or self-care (01) ==
LOC: RT 13:17
PROVIDERS: PCP Family Medicine; Visit Provider Family Medicine
DX: R42 Dizziness and giddiness (principal); I10 Essential (primary) hypertension
CPT/HCPCS: 93880

== ENCOUNTER 2024-05-06 14:20 | Outpatient (CLI) | payer MEDICARE, SELFPAY ==
--- NOTE | 2024-05-06 14:24 | XR_ITS ---
FINAL REPORT CLINICAL HISTORY: CHRONIC BACK PAIN COMPARISON: None FINDINGS: CERVICAL SPINE 5 views of the cervical spine were obtained. There is no acute fracture. There is no malalignment. The vertebrae are normal in height. Mild disc space narrowing is noted at C4-5 and C5-6. There is mild anterior osteophyte formation at C4-5. There is mild vascular calcification at the left carotid bifurcation. IMPRESSION: Degenerative changes without acute process. THORACIC SPINE Two views of the thoracic spine were obtained. There is no acute fracture. There is no malalignment. The vertebrae are normal in height. The disc spaces are preserved. There is mild anterior osteophyte formation at the mid and lower thoracic spine. IMPRESSION: Degenerative changes without acute process. LUMBAR SPINE 5 views of the lumbar spine were obtained. There is no acute fracture. There is 10 degrees of lumbar scoliosis convex to the right. The vertebrae are normal in height. There are moderately advanced hypertrophic changes of degenerative disc disease at L1-2 and L2-3. IMPRESSION: Degenerative changes without acute process. Reviewed, Interpreted and Dictated by Korey Gloria MD Transcribed by Nicole Luke Authenticated and [facility]
== END 2024-05-06 23:59 | disposition home or self-care (01) ==
LOC: RAD 14:21
PROVIDERS: PCP Family Medicine; Visit Provider Family Medicine
DX: G89.29 Other chronic pain (principal); M54.9 Dorsalgia, unspecified; M47.819 Spondylosis without myelopathy or radiculopathy, site unspecified
CPT/HCPCS: 72084